=== PATIENT | male | born 1945 | race Caucasian/White ===

== ENCOUNTER 2016-11-25 11:26 | Inpatient (IN) ==
--- NOTE | 2016-11-25 12:24 | XRay Report ---
2 view chest. Indication: Chest and arm pain. Left-sided pain. Comparison: July 09, 2016. The heart is normal in size. Cardiac hardware is in satisfactory position. The pulmonary vasculature is normal. There is mild atelectasis in the left lung base, no pneumothorax or pleural effusion. Degenerative changes within the spinal column. Impression: Mild left basilar atelectasis. PROCEDURE INTERPRETED AT [facility] DEPARTMENT OF RADIOLOGY Final Report Signed by: Dr. Nicole Tilley
[2016-11-25] MEDS ORDERED: ENOXAPARIN 100 MG/ML SYRINGE SUBCUT STA (12:45)
--- NOTE | 2016-11-25 12:49 | Ultrasound Report ---
Left upper extremity venous Doppler. Grayscale, color-flow, and spectral analysis performed and interpreted. Indication: Upper extremity pain and swelling. The left internal jugular vein appears patent. Also, the cephalic and mid to distal brachial veins are patent. There is occlusive thrombus visible in the left subclavian, axillary, basilic and proximal brachial veins. Impression: Extensive left upper extremity venous thrombosis. This critical test result was communicated between the scanning technologist and the ordering physician, Dr. Demarco. The Ultrasound images were captured and stored. PROCEDURE INTERPRETED AT [facility] DEPARTMENT OF RADIOLOGY Final Report Signed by: Dr. Nicole Tilley
[2016-11-25 12:54] LABS: Basophils # 0.1 10*3/uL (0.0-0.2); Basophils % 0.5 % (0.0-0.8); Eosinophils # 0.5 10*3/uL (0.0-0.87); Eosinophils % 5.3 % (0.00-10.9); Hemoglobin 14.3 GM/DL (14.0-18.0); Immature Granulocytes % 0.3 %; Immature Granulocytes Absolute 0.03 #; Lymphocytes # 1.7 10*3/uL (1.4-4.0); Lymphocytes % 17.6 % (21.2-54.2); Mean Corpuscular HGB Conc 34.9 GM/DL (32-36); Mean Corpuscular Hemoglobin 33 PG (27-34); Mean Corpuscular Volume 95.1 FL (87-102); Mean Platelet Volume 10.1 FL (9.6-12.0); Monocytes # 1.1 10*3/uL (0.11-0.8); Neutrophils % 64.3 % (38.7-73.9); Platelet Count 185 T/CUMM (130-400); Red Blood Count 4.31 MC/CUMM (3.8-5.5); Red Cell Distribution Width 12.8 % (9.3-17.3); White Blood Count 9.4 T/CUMM (4-12)
--- NOTE | 2016-11-25 13:06 | Emergency Department Note ---
IMami Emily, am scribing for, and in the presence of, Bunny Demarco MD 11: 59. Nilam Stovall Charles R, MD, personally performed the services described in this documentation, ascribed by Fatemeh Bolaños in my presence, and it is both accurate and complete . Arrival - Arrival Chief Complaint: Extremity Problem Stated Complaint: left arm swollen maybe pacemaker relaten ED Nursing Triage Note: Pt c/o left arm swelling and pain under left arm since yesterday. Denies injury. Pt had a pacemaker placed on the left side 4 months ago. Mode of Arrival: Ambulatory Limitations: No Limitations Source: Patient - History of Present Illness HPI Narrative: Pt is a 70 y/o male who came to ED with c/o left arm, above axilla, swelling with pain underneath that was noticed yesterday. Pt reports having pacemaker placed 4 months ago for slow heart rate, and denies recent injury or slow heart rate. PMHx of COPD. Pt is a former smoker. Pt takes an aspirin daily. Onset (ago): day(s) Consistency: constant Severity: mild Severity scale (1-10): 3 Quality: aching Allergies/Adverse Reactions: Allergies Allergy/AdvReac Type Severity Reaction Status Date / Time Sulfa (Sulfonamide Allergy Verified 07/08/16 11:31 Antibiotics) Home Medications: Home Medications Medication Instructions Recorded Confirmed Type Cetirizine Tab [ZyrTEC Tab] 10 mg PO QAM 07/02/16 11/25/16 History Aspirin EC Tab 81 mg PO QAM 07/05/16 11/25/16 History Coenzyme Q10 100 mg PO QAM 07/05/16 11/25/16 History Montelukast Tab [Singulair Tab] 10 mg PO BEDTIME 07/05/16 11/25/16 History Multivitamin [Multivitamins] 1 each PO QAM 07/05/16 11/25/16 History Ramipril 5 mg PO QAM 07/05/16 11/25/16 History Simvastatin 20 mg PO BEDTIME 07/05/16 11/25/16 History Review of System - Review of System 12 point system: reviewed and no additional remarkable complaints except as stated - Review of System Constitutional: Absent: chills, fever Respiratory: Absent: respiratory distress Cardiovascular: Absent: chest pain Gastrointestinal: Absent: abdominal pain Musculoskeletal: Present: arm pain (left arm swelling) Skin: Absent: rash Neurological: Absent: headache Medical,Surgical,& Family Hx - Medical History Cardio: History of: Pacemaker Neurology: No history of: Seizures Respiratory: History of: COPD - Surgical History Abdominal Surgeries: Surgical HX of: Colonoscopy - Family History Family History: Reports;: Family Heart Disease - Social History Smoking Status: Former smoker Marital Status: Single Lives With:: Alone Functional capacity: independent ambulation Exam Vital Signs: Vital Signs Temperature 97.0 F L 11/25/16 11:32 Pulse Rate 61 11/25/16 11:32 Respiratory Rate 16 11/25/16 11:32 Blood Pressure 131/71 11/25/16 11:32 O2 Sat by Pulse Oximetry 98 11/25/16 11:32 - General General appearance: alert, in no apparent distress - Head Head exam: Present: atraumatic, normocephalic - Eye Eye exam: Present: PERRL, EOMI - ENT ENT exam: Present: mucous membranes moist. Absent: mucous membranes dry - Neck Neck exam: Present: full ROM. Absent: tenderness - Chest Chest inspection: Present: symmetric chest wall rise. Absent: tenderness - Respiratory Respiratory exam: Present: normal lung sounds bilaterally. Absent: respiratory distress - Cardiovascular Cardiovascular exam: Present: regular rate, normal rhythm, normal heart sounds - Extremities Exam Extremities exam: Present: full ROM, tenderness (tenderness above left axilla into left bicep with increasing warm; good pulses), normal capillary refill. Absent: pedal edema - Neurological Exam Neurological exam: Present: alert, oriented X3, CN II-XII intact. Absent: motor sensory deficit - Psychiatric Psychiatric exam: Present: normal affect, normal mood - Skin Skin exam: Present: warm, dry Course - Consultations Consultation #1: Dr Robb will admit pt Time: 13:02 Results - Labs CBC & BMP: 11/25/16 12:46 Lab Results: I have reviewed the patients labs - Diagnostic Findings Procedure: Chest x-ray: report reviewed by me (Mild left basilar atelectasis.) Disposition Clinical Impression: Deep venous thrombosis of left upper extremity Case discussed with: patient Disposition: Still a Patient Condition: Stable Time of Disposition: 13:06
[2016-11-25 13:10] LABS: INR 0.9; PT Patient Result 9.9 SECS
[2016-11-25 13:13] LABS: Lactic Acid 0.8 MMOL/L (0.4-2.0)
[2016-11-25] MEDS ORDERED: ENOXAPARIN 100 MG/ML SYRINGE SUBCUT ONE (13:32)
[2016-11-25 13:33] LABS: Alanine Aminotransferase 33 U/L (16-61); Albumin 3.7 G/DL (3.4-5.0); Alkaline Phosphatase 87 U/L (45-117); Aspartate Amino Transferase 26 U/L (0-37); Blood Urea Nitrogen 14 MG/DL (7-18); Calcium 9.1 MG/DL (8.5-10.1); Glucose 71 MG/DL (74-106); Magnesium 2.1 MG/DL (1.8-2.4); Osmolality,Calculated 279.3 MOS/KG (273-304); Potassium 4.2 MMOL/L (3.5-5.1); Sodium 141 MMOL/L (136-145); Troponin I Only < 0.015 NG/ML (0.00-0.045)
[2016-11-25 13:58] LABS: Sedimentation Rate-Westergren 30 MM/HR (0-20)
[2016-11-25] MEDS ORDERED: ACETAMINOPHEN 325 MG TABLET PO PRN (15:10)
[2016-11-25] MEDS ORDERED: BISACODYL 5 MG TABLET PO PRN (15:10)
[2016-11-25] MEDS ORDERED: ONDANSETRON 4 MG/2 ML VIAL IV PRN (15:10)
[2016-11-25] MEDS ORDERED: diphenhydrAMINE CAP 25 MG CAPSULE PO PRN (15:10)
[2016-11-25] MEDS ORDERED: DOCUSATE SODIUM 100 MG CAPSULE PO PRN (15:10)
[2016-11-25] MEDS ORDERED: MAGNESIUM SULF RIDER 4 GM in PREMIX 1 EACH IV PRN (15:10)
[2016-11-25] MEDS ORDERED: ZALEPLON 5 MG CAPSULE PO PRN (15:10)
[2016-11-25] MEDS ORDERED: POTASSIUM CHLORIDE 20 MEQ TABLET PO PRN (15:10)
[2016-11-25] MEDS ORDERED: MAGNESIUM SULF RIDER 2 GM in PREMIX 1 EACH IV PRN (15:10)
[2016-11-25] MEDS ORDERED: METOPROLOL TARTRATE 50 MG TABLET PO SCH (15:30)
[2016-11-25] MEDS ORDERED: APIXABAN 5 MG TABLET PO ONE (16:20)
[2016-11-25] MEDS: PANTOPRAZOLE 40 MG TABLET PO SCH (16:35)
--- NOTE | 2016-11-25 17:12 | Cardiology History & Physical ---
Kem Stovall Lesley, MAMADOU, am scribing for, and in the presence of, David Robb MD 17:12. Assessment and Plan - Time spent with patient Time spent with patient: Greater than 30 minutes (Record review, assessment, and documentation) (1) Hypertension Status: Chronic Assessment and plan: SEE PLAN LISTED BELOW Current Visit: Yes (2) Dyslipidemia Status: Chronic Assessment and plan: SEE PLAN LISTED BELOW Current Visit: Yes (3) Status post placement of cardiac pacemaker Status: Chronic Assessment and plan: SEE PLAN LISTED BELOW Current Visit: Yes (4) COPD (chronic obstructive pulmonary disease) Status: Chronic Assessment and plan: SEE PLAN LISTED BELOW Current Visit: Yes (5) Deep venous thrombosis of left upper extremity Status: Acute Assessment and plan: SEE PLAN LISTED BELOW Current Visit: Yes History of Present Illness Chief complaint: Left arm swelling and pain History of present illness: [employer] W[employer]: Dr. Robb Mr. Mojica is a 70 year old WM, who presented to ER for evaluation of left arm swelling and pain. The patient is known to Dr. Robb, and was last seen in clinic 08/2016. Past medical history includes hypertension, hyperlipidemia, chronic fatigue, status post pacemaker for sinus node dysfunction and bradycardia, palpitations, COPD, cardiomegaly. Past surgical history includes permanent cardiac pacemaker, patient has a Medtronic dual-chamber pacemaker placed July 08, [address] Schilling. Family history includes father and mother of cancer. The patient denies chest pain, dyspnea, syncope, heart palpitations. The patient had a normal exercise stress test 06/2016 with EF 51% . Echocardiogram revealed EF of 50% with mildly dilated left atrium, aortic valve sclerosis, normal RV function, mild TR PAP 40 mmHg, no effusion. The patient was a former smoker for 30 years, states he quit smoking approximately 23 years ago. He admits moderate alcohol consumption. The patient states that he noticed tingling in the left arm with some swelling that started 2 days ago. He reports the swelling did not improve, and he noted pain in the upper left arm and in the left axilla area. He called [facility], and was told to go to the emergency room for evaluation. Venous Doppler of the left upper extremity reveals extensive venous thrombosis to the left subclavian , axillary, basilic and proximal brachial veins. The patient was given Lovenox 90 mg subcutaneously in the ER. The patient was seen and examined in the emergency room with his at the bedside. The patient was in no acute distress, the left lower and upper arm is noted with erythema and generalized edema. Mild tenderness to palpation, radial pulse palpable. Tenderness to palpation in the axillary region. Plan to admit to telemetry for close observation. We will start Eliquis 5mg bid. We will keep the extremity elevated and medicate for pain as needed. Labs reviewed ESR 30, INR 0.9, Creatinine 1.1, BUN 14, Potassium 4.2, Sodium 141 , Magnesium 2.1, CRP 0.53, Troponin negative, CKMB 4.1, Total CK 147, Hgb 14, Hct 41. Chest x-ray reveals pacemaker in satisfactory position, mild atelectasis in the left lung base. IMPRESSION AND PLAN: DVT OF LEFT UPPER EXTREMITY -s/p dual chamber cardiac pacemaker 06/2016. Lovenox 90mg given in ER, will initiate Eliquis. S/P DUAL CHAMBER PM - 06/2016 underwent PM for sick sinus syndrome, symptomatic bradycardia, and chronotropic incompetence. HYPERTENSION - beta duy, Doug-I, continue meds and adjust accordingly. DYSLIPIDEMIA - continue Simvastatin COPD - former smoker, quit 23 years ago (smoked 30 years), continue meds. Cardiology addendum Patient examined chart reviewed and discussed with nurse GENE Palencia. Status post Medtronic dual-chamber pacemaker July 08, [address] Schilling for sick sinus syndrome with symptomatic bradycardia and chronotropic incompetence. He presents to the ER today with a four-day history of increasing left upper extremity edema and tightness in his forearm. Upper extremity venous Doppler shows extensive thrombosis in the axillary subclavian and basilic veins. No fever or chills. No dyspnea. The patient plays golf 3 times per week and he enjoys jogging. He had a normal exercise stress test June 16, 2016 EF 51%. Intact brachial and radial pulses. Flat neck veins. Clear lungs. Pacemaker pocket is clean and dry. Regular rhythm no murmur or gallop. Plan Admit to telemetry Begin Eliquis 10 mg twice daily Keep left arm elevated Analgesics as needed Findings and plan discussed with patient and with his ji. All questions answered. He agrees to proceed as outlined. Home Medications Medication Instructions Recorded Confirmed Type Cetirizine Tab [ZyrTEC Tab] 10 mg PO QAM 07/02/16 11/25/16 History Aspirin EC Tab 81 mg PO QAM 07/05/16 11/25/16 History Coenzyme Q10 100 mg PO QAM 07/05/16 11/25/16 History Montelukast Tab [Singulair Tab] 10 mg PO BEDTIME 07/05/16 11/25/16 History Multivitamin [Multivitamins] 1 each PO QAM 07/05/16 11/25/16 History Ramipril 5 mg PO QAM 07/05/16 11/25/16 History Simvastatin 20 mg PO BEDTIME 07/05/16 11/25/16 History Allergies Allergy/AdvReac Type Severity Reaction Status Date / Time Sulfa (Sulfonamide Allergy Verified 07/08/16 11:31 Antibiotics) - Constitutional Constitutional: Absent: anorexia, chills, lethargy - EENT Nose, mouth and throat: Absent: dysphagia, epistaxis, headache(s) - Cardiovascular Cardiovascular: Present: edema. Absent: chest pain at rest, chest pain with activity, diaphoresis, dyspnea, dyspnea on exertion, palpitations - Respiratory Respiratory: Absent: cough, dyspnea, hemoptysis, dyspnea on exertion, wheezing - Gastrointestinal Gastrointestinal: Absent: abdominal pain, change in bowel habits, heartburn - Genitourinary Genitourinary: Absent: difficulty urinating - Neurological Neurological: Absent: abnormal gait, abnormal speech, behavioral changes, confusion, dizziness - Psychiatric Psychiatric: Absent: anxiety - Endocrine Endocrine: Absent: cold intolerance, fatigue - Hematologic/Lymphatic Hematologic/Lymphatic: Absent: easy bleeding Medical,Surgical,& Family Hx - Medical History Cardio: History of: Hypertension, Pacemaker Neurology: No history of: Seizures Endocrine: History of: Dyslipidemia Respiratory: History of: COPD Hematology: No history of: Anemia, Clotting Problems - Surgical History Cardiac Surgeries: Sugical HX of: Cardiac Surgery Abdominal Surgeries: Surgical HX of: Colonoscopy - Family History Family History: Reports;: Family Cancer, Family Heart Disease - Social History Smoking Status: Former smoker Have you smoked in the last 12 months: No Frequency of Alcohol Use: Frequently Type of Drug Use: None Marital Status: Lives With:: Spouse Functional capacity: independent ambulation Cardiology Physical Exam - Constitutional Vitals: Vital Signs Temp Pulse Resp BP Pulse Ox 97.0 F L 61 16 131/71 98 11/25/16 11:32 11/25/16 11:32 11/25/16 11:32 11/25/16 11:32 11/25/16 11:32 Intake and Output 11/24/16 11/25/16 11/25/16 23:59 07:59 15:59 Other: Weight 199 lb Patient Weight 11/25/16 23:59 Weight 199 lb Exam: General: Appears well with no apparent distress. Pleasant and cooperative. Appears comfortable. HEENT: PERRL, normocephalic, atraumatic. Mucous membranes moist. No jaundice noted. Conjunctiva moist and clear, sclerae anicteric. Neck: No JVD, no thyromegaly or lymphadenopathy noted. No carotid bruit appreciated. Cardiac: Regular rate and rhythm. No murmur rub or gallop. PMI is nondisplaced. Lungs: Clear to auscultation without accessory muscle use to assist the respiratory pattern. No oxygen in use. Abdomen: Soft, bowel sounds normoactive. Nontender and nondistended. No abdominal bruit or thrill noted. No masses noted. Musculoskeletal: No fluid collection. Decreased range of motion is noted. Left upper extremity noted with mild erythema, generalized edema, tenderness to palpation. Extremities: No clubbing, cyanosis noted. Edema to left upper extremity only. Upper extremity pulses 2+. Lower extremity pulses 2+. Capillary refill less than 3 seconds. Skin: Warm and dry. No unusual lesions or rashes. No skin breakdown appreciated. Neuro: Awake, alert and oriented 3. Moves all extremities well without hemiparesis or paralysis. No essential tremor is appreciated. Result/EKG - Labs CBC & BMP: 11/25/16 12:46 11/25/16 12:46 Lab Results: I have reviewed the past 24 hour labs Labs: Laboratory Results - last 24 hr 11/25/16 11/25/16 11/25/16 12:46 12:46 12:46 WBC 9.4 RBC 4.31 Hgb 14.3 Hct 41.0 L MCV 95.1 MCH 33 MCHC 34.9 RDW 12.8 Plt Count 185 MPV 10.1 Neut % (Auto) 64.3 Lymph % (Auto) 17.6 L [place] % (Auto) 12.0 Eos % (Auto) 5.3 Baso % (Auto) 0.5 Neut # (Auto) 6.0 Lymph # (Auto) 1.7 [place] # (Auto) 1.1 H Eos # (Auto) 0.5 Baso # (Auto) 0.1 Immature Gran % 0.3 Nucleated RBC % 0.0 Immature Gran # 0.03 Nucleated RBCs # 0.00 Immature Plt Fraction 0.0 ESR Westergren 30 H INR 0.9 PT Patient/Control Mix 9.9 Sodium 141 Potassium 4.2 Chloride 107 Carbon Dioxide 32 Anion Gap 6.2 BUN 14 Creatinine 1.10 GFR Calculation 83 BUN/Creatinine Ratio 12.00 Glucose 71 L Calculated Osmolality 279.3 Lactic Acid 0.8 Calcium 9.1 Magnesium 2.1 Total Bilirubin 0.50 AST 26 ALT 33 Alkaline Phosphatase 87 Total Creatine Kinase 147 CK-MB (CK-2) 4.1 H Troponin I < 0.015 C-Reactive Protein 0.53 H Total Protein 7.0 Albumin 3.7 Globulin 3.3 Albumin/Globulin Ratio 1.1 - Diagnostic Findings Procedure: Chest x-ray: report reviewed by me, Ultrasound: report reviewed by me (LACEYE DVT) - EKG EKG results: interpreted by me IClarisse Thomas, MD, personally performed the services described in this documentation, ascribed by Brooklyn Brownlee NP in my presence, and it is both accurate and complete 712 .
[2016-11-25] MEDS: APIXABAN 5 MG TABLET PO SCH (20:49)
[2016-11-25] MEDS ORDERED: SIMVASTATIN 20 MG TABLET PO SCH (21:00)
[2016-11-25] MEDS ORDERED: MONTELUKAST 10 MG TABLET PO SCH (21:00)
[2016-11-25] MEDS ORDERED: APIXABAN 5 MG TABLET PO SCH (21:00)
[2016-11-26 05:42] LABS: Basophils % 0.2 % (0.0-0.8); Eosinophils # 0.6 10*3/uL (0.0-0.87); Hematocrit 39.8 VOL% (42.0-52.0); Hemoglobin 14.1 GM/DL (14.0-18.0); Immature Granulocytes % 0.5 %; Immature Granulocytes Absolute 0.04 #; Lymphocytes # 1.8 10*3/uL (1.4-4.0); Lymphocytes % 21.2 % (21.2-54.2); Mean Corpuscular HGB Conc 35.4 GM/DL (32-36); Mean Corpuscular Hemoglobin 33 PG (27-34); Mean Corpuscular Volume 94.3 FL (87-102); Mean Platelet Volume 10.5 FL (9.6-12.0); Monocytes % 11.6 % (1.7-12.7); Neutrophils # 4.9 10*3/uL (1.4-7.4); Neutrophils % 59.5 % (38.7-73.9); Platelet Count 179 T/CUMM (130-400); Red Blood Count 4.22 MC/CUMM (3.8-5.5); Red Cell Distribution Width 12.7 % (9.3-17.3); White Blood Count 8.3 T/CUMM (4-12)
[2016-11-26 06:08] LABS: Calcium 8.7 MG/DL (8.5-10.1); Magnesium 1.9 MG/DL (1.8-2.4); Osmolality,Calculated 282.1 MOS/KG (273-304); Potassium 4.1 MMOL/L (3.5-5.1)
[2016-11-26 06:11] LABS: Calcium 8.6 MG/DL (8.5-10.1); Osmolality,Calculated 281.1 MOS/KG (273-304); Potassium 4.1 MMOL/L (3.5-5.1); Risk Ratio 3.27; VLDL CHOLESTEROL 33.6 MG/DL
[2016-11-26] MEDS ORDERED: ASPIRIN EC 81 MG TABLET PO SCH (09:00)
[2016-11-26] MEDS ORDERED: RAMIPRIL 2.5 MG CAPSULE PO SCH (09:00)
[2016-11-26] MEDS ORDERED: CETIRIZINE 10 MG TABLET PO SCH (09:00)
[2016-11-26] MEDS ORDERED: MULTIVITAMIN (CENTRUM) TABLET PO SCH (09:00)
[2016-11-26] MEDS ORDERED: COENZYME Q10 100 MG CAPSULE PO SCH (09:00)
[2016-11-26] MEDS: APIXABAN 5 MG TABLET PO SCH (09:44)
[2016-11-26] MEDS: PANTOPRAZOLE 40 MG TABLET PO SCH (09:44)
[2016-11-26 11:59] VITALS: BP 120/68
--- NOTE | 2016-11-26 12:47 | Cardiology Progress Note ---
Assessment and Plan (1) Hypertension Status: Chronic Assessment and plan: SEE PLAN LISTED BELOW Current Visit: Yes (2) Dyslipidemia Status: Chronic Assessment and plan: SEE PLAN LISTED BELOW Current Visit: Yes (3) Status post placement of cardiac pacemaker Status: Chronic Assessment and plan: SEE PLAN LISTED BELOW Current Visit: Yes (4) COPD (chronic obstructive pulmonary disease) Status: Chronic Assessment and plan: SEE PLAN LISTED BELOW Current Visit: Yes (5) Deep venous thrombosis of left upper extremity Status: Acute Assessment and plan: SEE PLAN LISTED BELOW Current Visit: Yes Cardiology - PN: Subj Interval history: Cardiology note No temperature. Walking comfortably. Left arm swelling has already improved. The left arm is less tense pulses are brisk Telemetry shows steady sinus rhythm O2 sat 97% on room air. Blood pressure 174 Regular rhythm no murmur or gallop Clear lungs No leg edema Lab data today White count 8.3 hemoglobin 14.1 hematocrit 39.8 Sodium 142 potassium 4.1 chloride 108 CO2 29 BUN 14 creatinine 1.0 Glucose 89 magnesium 1.6 impression Left upper extremity DVT-improving on Eliquis twice daily Status post dual-chamber pacemaker July 08, [address] Schilling Chronic hypertension well controlled Hyperlipidemia Remote tobacco abuse Normal exercise cardiac stress test June 16, 2016 EF 51% Plan Home today. Eliquis 10 mg twice daily for 1 week then 5 mg twice daily daily Office visit with EKG in 1 week Keep left arm elevated Exam (Progress Note) - Constitutional Vitals: Period Temp Pulse Resp BP Sys/Willard Pulse Ox Last 24 Hr 97.0 F-98.6 F 60-62 16-20 119-128/55-80 93-100 Result/EKG - Labs CBC & BMP: 11/26/16 04:37 11/26/16 04:37 Labs: Laboratory Results - last 24 hr 11/25/16 11/25/16 11/25/16 12:46 12:46 12:46 WBC 9.4 RBC 4.31 Hgb 14.3 Hct 41.0 L MCV 95.1 MCH 33 MCHC 34.9 RDW 12.8 Plt Count 185 MPV 10.1 Neut % (Auto) 64.3 Lymph % (Auto) 17.6 L [place] % (Auto) 12.0 Eos % (Auto) 5.3 Baso % (Auto) 0.5 Neut # (Auto) 6.0 Lymph # (Auto) 1.7 [place] # (Auto) 1.1 H Eos # (Auto) 0.5 Baso # (Auto) 0.1 Immature Gran % 0.3 Nucleated RBC % 0.0 Immature Gran # 0.03 Nucleated RBCs # 0.00 Immature Plt Fraction 0.0 ESR Westergren 30 H INR 0.9 PT Patient/Control Mix 9.9 Sodium 141 Potassium 4.2 Chloride 107 Carbon Dioxide 32 Anion Gap 6.2 BUN 14 Creatinine 1.10 GFR Calculation 83 BUN/Creatinine Ratio 12.00 Glucose 71 L Calculated Osmolality 279.3 Lactic Acid 0.8 Calcium 9.1 Magnesium 2.1 Total Bilirubin 0.50 AST 26 ALT 33 Alkaline Phosphatase 87 Total Creatine Kinase 147 CK-MB (CK-2) 4.1 H Troponin I < 0.015 C-Reactive Protein 0.53 H Total Protein 7.0 Albumin 3.7 Globulin 3.3 Albumin/Globulin Ratio 1.1 Triglycerides Cholesterol LDL Cholesterol VLDL Cholesterol HDL Cholesterol Heart Disease Risk Ratio 11/26/16 11/26/16 11/26/16 04:37 04:37 04:37 WBC 8.3 RBC 4.22 Hgb 14.1 Hct 39.8 L MCV 94.3 MCH 33 MCHC 35.4 RDW 12.7 Plt Count 179 MPV 10.5 Neut % (Auto) 59.5 Lymph % (Auto) 21.2 [place] % (Auto) 11.6 Eos % (Auto) 7.0 Baso % (Auto) 0.2 Neut # (Auto) 4.9 Lymph # (Auto) 1.8 [place] # (Auto) 1.0 H Eos # (Auto) 0.6 Baso # (Auto) 0.0 Immature Gran % 0.5 Nucleated RBC % 0.0 Immature Gran # 0.04 Nucleated RBCs # 0.00 Immature Plt Fraction 0.0 ESR Westergren INR PT Patient/Control Mix Sodium 142 142 Potassium 4.1 4.1 Chloride 107 108 H Carbon Dioxide 29 29 Anion Gap 10.1 9.1 BUN 13 14 Creatinine 1.00 1.00 GFR Calculation 94 94 BUN/Creatinine Ratio 13.00 14.00 Glucose 88 89 Calculated Osmolality 281.1 282.1 Lactic Acid Calcium 8.6 8.7 Magnesium 2.0 1.9 Total Bilirubin AST ALT Alkaline Phosphatase Total Creatine Kinase CK-MB (CK-2) Troponin I C-Reactive Protein Total Protein Albumin Globulin Albumin/Globulin Ratio Triglycerides 168 H Cholesterol 157 LDL Cholesterol 84.0 VLDL Cholesterol 33.6 HDL Cholesterol 48 Heart Disease Risk Ratio 3.27
--- NOTE | 2016-11-26 14:46 | Discharge Summary ---
Kem Stovall Lesley, NP, am scribing for, and in the presence of, Blanca Ga NP 14:45. Hospital Course - Hospital Course Hospital Course: Mr. Mojica is a 70-year-old patient of Dr. Robb he presented to the emergency room with complaints of left arm swelling and pain. He is 4 months status post dual-chamber pacemaker placed (07/08/16). The patient had been having symptoms in the left arm starting 4 days ago. Venous Doppler revealed extensive thrombus in the axillary, subclavian, and basilic veins. He denied fever chills, dyspnea, and chest pain. Her recent exercise stress test done 2016 was normal, with an EF of 51%. The patient was given Lovenox in the emergency room, and admitted overnight for close observation. He was started on 10 mg of Eliquis twice daily and the left arm was kept elevated. The patient 's hospital course was uneventful, notably swelling and tightness of the left forearm have improved today. The patient will be discharged home today to continue regular medications, we will add Eliquis 10 mg p.o. twice daily for 7 days, he will then decrease Eliquis to 5 mg p.o. twice daily. The patient has been instructed not to play golf, or any other repetitive activities with the left upper extremity. This is to include heavy lifting or overuse of the left upper extremity. We will schedule the patient a follow-up appointment at [facility] with Dr. Robb in 1 week, the patient prefers hydramatic mechanic appointment. He is to have an EKG, CBC prior to that appointment. I offered the patient a prescription for analgesics, he declines. He may take acetaminophen for discomfort. The patient was also notified to call the clinic with any worsening of his condition, to include chest pain or shortness of breath. Discharge medications: Eliquis 10 mg p.o. twice daily 7 days, then reduce to 5 mg p.o. twice daily. ASA 81 mg p.o. every morning Ramipril 5 mg p.o. every morning Simvastatin 20 mg p.o. nightly - Time spent with patient Time with patient DS: Greater than 30 minutes (Record review, assessment, discharge documentation) Diagnosis - Discharge Diagnosis (1) Hypertension Status: Chronic (2) Dyslipidemia Status: Chronic (3) Status post placement of cardiac pacemaker Status: Chronic (4) COPD (chronic obstructive pulmonary disease) Status: Chronic (5) Deep venous thrombosis of left upper extremity Status: Acute Specialty Discharge - Follow Up or Referrals Follow up with: David Robb MD [Physician] - 1 Week (Pt. requests early AM appt. EKG and CBC prior to appointment) Discharge Plan - Discharge Data Disposition: Disch To Home/Self Care Condition at Discharge: Stable Discharge Diet: heart healthy Activity: resume usual activities as tolerated, no lifting (with left arm, no repetitive use, no golfing) Hygiene: no restrictions Weight Bearing at Discharge: full weight bearing Driving: no restrictions Contact your physician if you experience:: fever over 101, Redness or swelling, Nausea/Vomiting, Shortness of breath, Bleeding, pain uncontrolled by pain medications - Discharge Medications New Apixaban [Eliquis] 10 mg PO BID #75 tablet Continue Simvastatin 20 mg PO BEDTIME Multivitamin [Multivitamins] 1 each PO QAM Coenzyme Q10 100 mg PO QAM Aspirin EC Tab 81 mg PO QAM Cetirizine Tab [ZyrTEC Tab] 10 mg PO QAM Montelukast Tab [Singulair Tab] 10 mg PO BEDTIME Ramipril 5 mg PO QAM - Follow Up or Referral Follow Up: David Robb MD [Physician] - 1 Week (Pt. requests early AM appt. EKG and CBC prior to appointment) - Forms/Instructions Additional Discharge Instructions: TAKE ELIQUIS 10MG PO BID X 7 DAYS, THEN TAKE 5MG PO BID. Exam - Constitutional Vitals: Period Temp Pulse Resp BP Sys/Willard Pulse Ox Last 24 Hr 97.0 F-98.6 F 60-62 16-20 119-128/55-80 93-100 Exam: General: Appears well with no apparent distress. Pleasant and cooperative. Appears comfortable. HEENT: PERRL, normocephalic, atraumatic. Mucous membranes moist. No jaundice noted. Conjunctiva moist and clear, sclerae anicteric. Neck: No JVD, no thyromegaly or lymphadenopathy noted. No carotid bruit appreciated. Cardiac: Regular rate and rhythm. No murmur rub or gallop. PMI is nondisplaced. Lungs: Clear to auscultation without accessory muscle use to assist the respiratory pattern. No oxygen in use. Abdomen: Soft, bowel sounds normoactive. Nontender and nondistended. No abdominal bruit or thrill noted. No masses noted. Musculoskeletal: No fluid collection. Full range of motion is noted. Extremities: No clubbing, cyanosis noted. Generalized edema noted to left upper extremity. Upper extremity pulses 2+. Lower extremity pulses 2+. Capillary refill less than 3 seconds. Skin: Warm and dry. No unusual lesions or rashes. No skin breakdown appreciated. Neuro: Awake, alert and oriented 3. Moves all extremities well without hemiparesis or paralysis. No essential tremor is appreciated. Discharge Results Procedures and tests throughout hospitalization: Pending Orders 11/27/16 04:00 Basic Metabolic Panel IN AM Comp Blood Count Auto Diff IN AM Magnesium IN AM 11/28/16 04:00 Basic Metabolic Panel IN AM Comp Blood Count Auto Diff IN AM Magnesium IN AM 11/29/16 04:00 Basic Metabolic Panel IN AM Comp Blood Count Auto Diff IN AM Magnesium IN AM Labs on day of discharge: Labs from last 24 hours 11/26/16 11/26/16 11/26/16 04:37 04:37 04:37 WBC 8.3 RBC 4.22 Hgb 14.1 Hct 39.8 L MCV 94.3 MCH 33 MCHC 35.4 RDW 12.7 Plt Count 179 MPV 10.5 Neut % (Auto) 59.5 Lymph % (Auto) 21.2 [place] % (Auto) 11.6 Eos % (Auto) 7.0 Baso % (Auto) 0.2 Neut # (Auto) 4.9 Lymph # (Auto) 1.8 [place] # (Auto) 1.0 H Eos # (Auto) 0.6 Baso # (Auto) 0.0 Immature Gran % 0.5 Nucleated RBC % 0.0 Immature Gran # 0.04 Nucleated RBCs # 0.00 Immature Plt Fraction 0.0 Sodium 142 142 Potassium 4.1 4.1 Chloride 108 H 107 Carbon Dioxide 29 29 Anion Gap 9.1 10.1 BUN 14 13 Creatinine 1.00 1.00 GFR Calculation 94 94 BUN/Creatinine Ratio 14.00 13.00 Glucose 89 88 Calculated Osmolality 282.1 281.1 Calcium 8.7 8.6 Magnesium 1.9 2.0 Triglycerides 168 H Cholesterol 157 LDL Cholesterol 84.0 VLDL Cholesterol 33.6 HDL Cholesterol 48 Heart Disease Risk Ratio 3.27 - Imaging and Cardiology Procedure: Chest x-ray: report reviewed by me (mild left basilar atelectasis), Ultrasound: report reviewed by me (extensive thrombosis in the left subclavian, axillary, basilic, and proximal brachial veins.) DS: Provider Expected date of discharge: 11/26/16 Harmeet Stovall Lauren E, NP, personally performed the services described in this documentation, ascribed by Brooklyn Brownlee NP in my presence, and it is both accurate and complete 445 .
== END 2016-11-26 15:28 | disposition home or self-care (01) | DRG 301 ==
LOC: N.ED 11:26 → N.EDINP 15:10 → N.TELEN 16:15
PROVIDERS: ADMIT Internal Medicine Cardiovascular Disease; ATTEND Internal Medicine Cardiovascular Disease